=== PATIENT | female | born 1960 | race African-American/Black ===

== ENCOUNTER 2018-08-26 09:49 | Emergency (ER) | payer OTHER ==
[2018-08-26 10:04] VITALS: BP 135/61; PULSE 68; TEMP 97.8; BMI 24.2
[2018-08-26] MEDS ORDERED: IBUPROFEN 600 MG TABLET (FP) PO ONE ×2 (11:07→11:11)
--- NOTE | 2018-08-26 11:08 | PDOC ---
History of Present Illness - General Chief Complaint: Injury Stated Complaint: FALL Time Seen by Provider: 08/26/18 10:50 History Source: Patient Exam Limitations: No Limitations - History of Present Illness Initial Comments: 08/26/18 16:25 Pt is a 57 y/o F who presents to the ED with R arm pain. Pt states she was walking in the city yesterday when she slipped and fell into a police barricade pt states that she hit her R arm. Now she states it hurts to fully extend her R arm and she has associated swelling to the posterior R elbow. Denies numbness and tingling to the extremities, weakness to the extremities, and fever. Pt is R hand dominant. Past History - Travel Traveled outside of the country in the last 30 days: No Close contact w/someone who was outside of country & ill: No - Past Medical History Allergies/Adverse Reactions: Allergies Allergy/AdvReac Type Severity Reaction Status Date / Time No Known Allergies Allergy Verified 08/26/18 09:58 Home Medications: Ambulatory Orders Amlodipine Besylate [Norvasc -] 10 mg PO DAILY 08/26/18 Ibuprofen 600 mg PO Q6H #30 tablet 08/26/18 COPD: No HTN: Yes - Suicide/Smoking/Psychosocial Hx Smoking History: Never smoked Review of Systems - Review of Systems Able to Perform ROS?: Yes Comments:: 08/26/18 11:06 CONSTITUTIONAL: Absent: fever, chills, diaphoresis, generalized weakness, malaise, loss of appetite HEENT: Absent: rhinorrhea, nasal congestion, throat pain, throat swelling, difficulty swallowing, mouth swelling, ear pain, eye pain, visual Changes CARDIOVASCULAR: Absent: chest pain, loss of consciousness, palpitations, irregular heart rate, peripheral edema RESPIRATORY: Absent: cough, shortness of breath, dyspnea with exertion, orthopnea, wheezing, stridor, hemoptysis GASTROINTESTINAL: Absent: abdominal pain, abdominal distension, nausea, vomiting, diarrhea, constipation, melena, hematochezia GENITOURINARY: Absent: dysuria, frequency, urgency, hesitancy, hematuria, flank pain, genital pain MUSCULOSKELETAL: Present: R elbow and swelling pain Absent: myalgia SKIN: Absent: rash, itching, pallor NEUROLOGIC: Absent: headache, focal weakness or paresthesias, dizziness, unsteady gait, seizure, mental status changes, bladder or bowel incontinence PSYCHIATRIC: Absent: anxiety, depression, suicidal or homicidal ideation, hallucinations. Is the patient limited Turkish proficient: No *Physical Exam - Vital Signs Last Vital Signs Temp Pulse Resp BP Pulse Ox 97.8 F 68 17 135/61 100 08/26/18 10:00 08/26/18 10:00 08/26/18 10:00 08/26/18 10:00 08/26/18 10:00 - Physical Exam Comments: 08/26/18 11:07 GENERAL: Well developed, well nourished. Awake and alert. No acute distress. HEENT: Normocephalic, atraumatic. PERRLA, EOMI. No conjunctival pallor. Sclera are non- icteric. Moist mucous membranes. Oropharynx is clear. MUSCULOSKELETAL TTP of the posterior R elbow. Pt unable to fully extend R elbow d/t pain. Able to flex. Normal range of motion at all other joints. No CVA tenderness. EXTREMITIES: No cyanosis. No clubbing. No edema. No calf tenderness. SKIN: Warm and dry. Normal capillary refill. No rashes. No jaundice. NEUROLOGICAL: Alert, awake, appropriate. Cranial nerves 2-12 intact. No deficits to light touch and temperature in face, upper extremities and lower extremities. No motor deficits in the in face, upper extremities and lower extremities. Normoreflexic in the upper and lower extremities. Normal speech. Toes are down- going bilaterally. Gait is normal without ataxia. PSYCHIATRIC: Cooperative. Good eye contact. Appropriate mood and affect. Moderate Sedation - Procedure Monitoring Vital Signs: Procedure Monitoring Vital Signs Temperature 97.8 F 08/26/18 10:00 Pulse Rate 68 08/26/18 10:00 Respiratory Rate 17 08/26/18 10:00 Blood Pressure 135/61 08/26/18 10:00 O2 Sat by Pulse Oximetry (%) 100 08/26/18 10:00 Procedures - Splinting Splint Location: Right: Forearm, Elbow Pre-Proc Neuro Vasc Exam: normal Hand-Made Type: orthoglass Splint Type: Yes: Long Arm Post-Proc Neuro Vasc Exam: unchanged from pre-exam Deacon Bandage: 4" Sling: Yes Complications: No Medical Decision Making - Medical Decision Making 08/26/18 19:09 Pt is a 57 y/o F who presents to the ED for 2 days of R arm pain On exam, swelling to the posterior elbow and unable to fully extend the R arm. PMS intact. X-ray shows fat pad signs in the elbow with radial lucency to the radial head Will treat as a fracture Splint placed Ortho consult given DC home I discussed the physical exam findings, ancillary test results and final diagnoses with the patient. I answered all of the patient's questions. The patient was satisfied with the care received and felt comfortable with the discharge plan and treatment plan. The Patient agrees to follow up with the primary care physician/specialist within 24-72 hours. Return precautions were given. *DC/Admit/Observation/Transfer Diagnosis at time of Disposition: Radial head fracture, closed Qualifiers: Encounter type: initial encounter Fracture alignment: nondisplaced Laterality: right Qualified Code(s): S52.124A - Nondisplaced fracture of head of right radius, initial encounter for closed fracture - Discharge Dispostion Disposition: HOME Condition at time of disposition: Stable Decision to Admit order: No - Prescriptions Prescriptions: Ibuprofen 600 mg PO Q6H #30 tablet - Referrals Referrals: Damian Sullivan DO [Staff Physician] - - Patient Instructions Printed Discharge Instructions: How to Use a Sling, DI for Elbow Fracture Additional Instructions: You broke your elbow. You were placed in a splint and sling. Do not take the splint off until you can see orthopedics. A referral has been provided Keep the splint dry. Do not let it get wet in the shower Take 600mg of Motrin every 6 hours not to exceed 3,000mg a day for pain Ice the area through the splint Follow up with orthopedics tomorrow or Thursday Return to the ED for worsening pain, numbness and tingling to the extremity, weakness, or if you have any changes in your symptoms - Post Discharge Activity Forms/Work/School Notes: Back to Work
== END 2018-08-26 13:25 | disposition home or self-care (01) ==
LOC: JERFT 09:49
PROC: 2W38X1Z Immobilization of Right Upper Extremity using Splint (ICD-10-PCS; principal; 2018-08-26)
DX: S52.124A Nondisplaced fracture of head of right radius, initial encounter for closed fracture (principal); W01.198A Fall on same level from slipping, tripping and stumbling with subsequent striking against other object, initial encounter; Y93.01 Activity, walking, marching and hiking; Y92.480 Sidewalk as the place of occurrence of the external cause; Y99.8 Other external cause status
CPT/HCPCS: 73060-TC-RT-FY; 73070-TC-RT-FY; 73110-TC-RT-FY; 73130-TC-RT-FY; 99282-25